=== PATIENT | male | born 2000 | race Two or more races ===

== ENCOUNTER 2024-09-07 21:53 | Emergency (ER) | payer BC ==
[2024-09-07 22:07] VITALS: BP 98/58; PULSE 79; RESP 20; TEMP 97.9; BMI 19.2
[2024-09-07] MEDS ORDERED: IBUPROFEN 600 MG TABLET (FP) PO ONE (22:49)
[2024-09-07] MEDS ORDERED: AMOX TR/POT CLAV 875MG/125MG TABLETS (FP) ONE (22:49)
[2024-09-07] MEDS: AMOX TR/POT CLAV 875MG/125MG TABLETS (FP) PO ONE (22:51)
[2024-09-07] MEDS: IBUPROFEN 600 MG TABLET (FP) PO ONE (22:51)
== END 2024-09-07 22:53 | disposition home or self-care (01) ==
LOC: JERFT 21:53
DX: Z48.02 Encounter for removal of sutures (principal)
CPT/HCPCS: 99281-25